=== PATIENT | female | born 1980 | race Caucasian/White ===

== ENCOUNTER 2016-04-28 11:56 | Inpatient (IN) | payer OTHER ==
[2016-04-28] MEDS ORDERED: AMPICILLIN SODIUM 2 GM in NS 100 ML IV ONE (14:30)
[2016-04-28] MEDS ORDERED: LR 1,000 ML IV ONE (14:30)
[2016-04-28] MEDS ORDERED: LIDOCAINE 1% 30 ML SDV SC PRN (14:53)
[2016-04-28] MEDS ORDERED: EPSOM SALT 454 GM TP PRN (14:53)
[2016-04-28] MEDS ORDERED: TERBUTALINE SULFATE 1 MG/ML VIAL IV PRN (14:53)
[2016-04-28] MEDS ORDERED: MINERAL OIL 60 ML OIL TP PRN (14:53)
[2016-04-28] MEDS ORDERED: OXYTOCIN/RINGERS LACTATE 1,000 ML IV PRN (14:53)
[2016-04-28 15:11] LABS: % IMMATURE GRANULYOCYTES 0.5 % (0.0-1.1); ABSOLUTE IMMATURE GRANULOCYTES 0.06 10^3/uL (0.00-0.10); ADD DIFF? NO; ADD MORPH? NO; ADD SCAN? NO; ATYPICAL LYMPHOCYTE FLAG 0 (0-99); FRAGMENT RBC FLAG 0 (0-99); HEMATOCRIT 41.8 % (38.0-47.0); HEMOGLOBIN 13.9 g/dL (12.6-16.3); LEFT SHIFT FLG 0 (0-99); LIPEMIA HEMOLYSIS FLAG 80 (0-99); MEAN CELL HEMOGLOBIN 27.7 pg (27.9-34.1); MEAN CELL HEMOGLOBIN CONCENTR. 33.3 g/dL (32.4-36.7); MEAN CELL VOLUME 83.3 fL (81.5-99.8); MEAN PLATELET VOLUME 11.2 fL (8.7-11.7); PLATELET CLUMPS FLAG 10 (0-99); PLATELET COUNT 199 10^3/uL (150-400); RED BLOOD CELL COUNT 5.02 10^6/uL (4.18-5.33); RED CELL DISTRIBUTION WIDTH 15.1 % (11.5-15.2)
[2016-04-28] MEDS ORDERED: LIDOCAINE 1% 30 ML SDV ONE (15:13)
[2016-04-28] MEDS ORDERED: TERBUTALINE SULFATE 1 MG/ML VIAL ONE (15:13)
[2016-04-28] MEDS ORDERED: AMMONIA AROMATIC 1 EACH AMP IH ONE (15:13)
[2016-04-28] MEDS ORDERED: OXYTOCIN 10 UNIT/ML VIAL ONE (15:13)
[2016-04-28] MEDS ORDERED: MISOPROSTOL 200 MCG TAB ONE (15:14)
[2016-04-28] MEDS: AMPICILLIN SODIUM 1 GM in NS 100 ML IV SCH ×2 (18:30→22:12)
[2016-04-28] MEDS ORDERED: BUPIVACAINE 0.25% 30 ML SDV ONE (19:22)
[2016-04-28] MEDS ORDERED: fentaNYL 2MCG/ML/BUP 0.1% RTU 100 ML BAG EP ONE (19:22)
[2016-04-28] MEDS ORDERED: PHENYLEPHRINE HCL 100 MCG/ML SYR ONE (19:22)
[2016-04-28] MEDS ORDERED: fentaNYL 100 MCG/2 ML INJ ONE (19:37)
--- NOTE | 2016-04-28 19:59 | OBPROG ---
OBG Progress Note Assessment/Plan: Assessment: cat 1 fhr pain well managed requesting an epidural last exam 4/100/-1 leaking clear fluid since 0915 04/28/2016 raf q2-4 minutes Plan:epidural for pain relief 04/28/16 19:57 Subjective: Feeling greater pain. Requesting pain relief from anesthsia. Would like an epidural. Objective: 04/28/16 14:30 Patient ABO/Rh O POSITIVE 04/28/16 14:30 - SVE Dilation (cm): 4 Effacement (%): 100 Station: -1 Current Contraction Pattern: Regular FHR (bpm): 135 FHR Pattern Variability: Moderate FHR Category: 1 Membranes: SROM Amniotic Fluid Color: Clear ICD10 Worksheet Patient Problems: Problems Problem Status Diagnosed Full-term PROM with onset of labor within 24 hours of rupture Acute - ICD10 Problem Qualifiers (1) Full-term PROM with onset of labor within 24 hours of rupture
--- NOTE | 2016-04-28 20:16 | OBPROG ---
OBG Progress Note Assessment/Plan: Assessment: cat 2 fhr arom forebag meconium pain well managed afterm epidural placement at patient request last exam 7100/-1 leaking clear fluid since 0904/28/2016 raf q2-4 minutes Plan:expectant management of labor 04/28/16 19:57 04/28/16 20:14 Subjective: Doing well after the epidural denies pain Objective: 04/28/16 14:30 Patient ABO/Rh O POSITIVE 04/28/16 14:30 - SVE Dilation (cm): 7 Effacement (%): 100 Station: -1 Current Contraction Pattern: Regular FHR (bpm): 125 FHR Pattern Variability: Moderate FHR Category: 2 Membranes: AROM Amniotic Fluid Color: Meconium Stained-Moderate ICD10 Worksheet Patient Problems: Problems Problem Status Diagnosed Full-term PROM with onset of labor within 24 hours of rupture Acute - ICD10 Problem Qualifiers (1) Full-term PROM with onset of labor within 24 hours of rupture
--- NOTE | 2016-04-28 20:22 | GHP ---
[f rep st] HISTORY AND PHYSICAL DATE OF ADMISSION: 04/28/2016 HISTORY OF PRESENT ILLNESS: The patient is a 35-year-old, 2, para 1, who comes in on 04/28/2012 after rupture of membranes at 0900 with clear fluid. Denies regular contractions at that time. Started raf more regularly at 1:30 on 04/28/2016. Started with painful contractions at about 6 p.m. on 02/2017. PAST MEDICAL HISTORY: Benign. SURGICAL HISTORY: [place] tooth extraction. GYNECOLOGICAL HISTORY: History of OCP use and IUD Paragard use, removed in 2014. Paps within normal limits. HPV negative. PREVIOUS HISTORY: In 03/2009, a female who was 6 pounds 13 ounces at 39 weeks, delivered after 30 hours, vaginal delivery. This , 2. Patient has received care through [facility] routinely. No significant difficulties. LABORATORY DATA: The patient is O positive. Antibody negative. RPR is nonreactive. Rubella is immune. Hepatitis is negative. HIV is negative. Pap test was within normal limits with HPV negative. Gonorrhea and chlamydia were negative. Quad screen was negative on 11/17/2015 at 28 weeks. The patient was anemic at 34.9 today on admission. The patient was not anemic with a hematocrit of 41. One-hour GTT was within normal limits at 85. PLAN OF CARE: 1. GBS positive. Antibiotics during labor. 2. Pain relief at patient's request. 3. Expectant management of labor. /[id number]/MODL MTDD
[2016-04-28] MEDS ORDERED: LR 500 ML IV SCH (20:30)
[2016-04-28] MEDS ORDERED: fentaNYL 2MCG/ML/BUP 0.1% RTU 100 ML EP SCH (20:30)
--- NOTE | 2016-04-28 21:41 | OBPROG ---
OBG Progress Note Assessment/Plan: Assessment: cat 2 fhr arom forebag meconium pain well managed last exam 10/100/+1 raf q2-4 minutes attempt to push x 2 no movement of head will labor down x 1 h and reexam Plan:expectant management of labor 04/28/16 19:57 04/28/16 20:14 04/28/16 21:39 Objective: 04/28/16 14:30 Patient ABO/Rh O POSITIVE 04/28/16 14:30 - SVE Dilation (cm): 10 Effacement (%): 100 Station: +1 Current Contraction Pattern: Regular FHR (bpm): 135 FHR Pattern Variability: Moderate FHR Category: 2 Amniotic Fluid Color: Meconium Stained-Moderate ICD10 Worksheet Patient Problems: Problems Problem Status Diagnosed Full-term PROM with onset of labor within 24 hours of rupture Acute - ICD10 Problem Qualifiers (1) Full-term PROM with onset of labor within 24 hours of rupture
[2016-04-28] MEDS: IBUPROFEN 600 MG TAB PO PRN (22:58)
--- NOTE | 2016-04-28 22:59 | OBPROC ---
- Labor and Delivery Onset of Contractions Date: 04/28/16 Onset of Contractions Time: 13:30 Onset of Contractions Type: Spontaneous Rupture of Membranes Date: 04/28/16 Rupture of Membranes Time: 09:15 Rupture of Membranes Type: Spontaneous Amniotic Fluid Color: Clear, Meconium Stained-Moderate Dilation Complete Time: 21:28 Delivery Type: Spontaneous Placenta Delivery Date: 04/28/16 Placenta Delivery Time: 22:36 Episiotomy/Laceration: 2nd Degree Repair: 3-0, Vicryl EBL: 300 Complications: None - Medications Labor Augmentation/Induction Meds Used: Pitocin Anesthesia: Epidural - [place] Info A Delivery Date: 04/28/16 Delivery Time: 22:32 Score (1 Min): 8 Score (5 Min): 9
[2016-04-28] MEDS ORDERED: HYDROCODONE/APAP 5/325 TAB PO PRN (23:00)
[2016-04-28] MEDS ORDERED: ACETAMINOPHEN 325 MG TAB PO PRN (23:00)
[2016-04-28] MEDS ORDERED: HYDROCORTISONE 0.5% CREAM TP PRN (23:00)
[2016-04-28] MEDS ORDERED: SIMETHICONE 80 MG TAB CHEW PO PRN (23:00)
[2016-04-29] MEDS: AMPICILLIN SODIUM 1 GM in NS 100 ML IV SCH (02:53)
[2016-04-29] MEDS: IBUPROFEN 600 MG TAB PO PRN ×3 (05:06→19:38)
--- NOTE | 2016-04-29 07:56 | SOAPPROG ---
SOAP Progress Note Assessment/Plan: Assessment: denies pain well perineum approximated minimal swelling voiding without difficulty FF@u scant rubra lochia Plan:pp day1 04/28/16 19:57 04/28/16 20:14 04/28/16 21:39 04/29/16 07:54 Subjective: doing well this am . denies difficulties Objective: Vital Signs Temp Pulse Resp BP Pulse Ox 36.2 C 62 16 110/66 95 04/29/16 01:15 04/29/16 01:15 04/29/16 01:15 04/29/16 01:15 04/29/16 01:15 Laboratory Results 04/28/16 14:30 04/28/16 04/29/16 04/30/16 05:59 05:59 05:59 Intake Total 2600 Output Total 300 Balance 2300 - Time Spent With Patient Time Spent With Patient: 15 minutes - Pending Discharge Pending Discharge Within 24 Hours: Yes Pending Discharge Date: 04/30/16 Pending Discharge Time: 11:00 Physical Exam - Physical Exam General Appearance: WD/WN, alert, no apparent distress Abdomen: other (FF@u) Pelvic Exam: vaginal bleeding (scant rubra lochia) Skin: normal color, warm/dry Extremities: normal range of motion, Cesar's sign (negative) Neuro/Psych: alert, normal mood/affect, oriented x 3 ICD10 Worksheet Patient Problems: Problems Problem Status Diagnosed Full-term PROM with onset of labor within 24 hours of rupture Acute - ICD10 Problem Qualifiers (1) Full-term PROM with onset of labor within 24 hours of rupture
[2016-04-29 08:35] VITALS: O2SAT 96
[2016-04-29] MEDS: DOCUSATE SODIUM 100 MG CAP PO PRN (09:05)
[2016-04-30 08:31] VITALS: RESP 16
[2016-04-30] MEDS: DOCUSATE SODIUM 100 MG CAP PO PRN (10:22)
--- NOTE | 2016-04-30 12:34 | SOAPPROG ---
SOAP Progress Note Assessment/Plan: Assessment: PPD 1 1/2 s/p Plan: Routine care 04/30/16 12:31 Subjective: Pt doing well. Bld has lessened. Mod cramps but not even regularly needing ibu. urinating fine. Baby is latching well. Tired. Objective: Vital Signs Temp Pulse Resp BP Pulse Ox 36.2 C 89 16 112/70 96 04/30/16 08:30 04/30/16 08:30 04/30/16 08:30 04/30/16 08:30 04/30/16 08:30 Laboratory Results 04/28/16 14:30 04/29/16 04/30/16 05/01/16 05:59 05:59 05:59 Intake Total 2600 Output Total 300 Balance 2300 Physical Exam - Physical Exam General Appearance: WD/WN Abdomen: non-tender, soft, other (FF at umb -1) Pelvic Exam: vaginal bleeding (normal lochia) Extremities: non-tender, pedal edema (minimal) Neuro/Psych: normal mood/affect ICD10 Worksheet Patient Problems: Problems Problem Status Onset Full-term PROM with onset of labor within 24 hours of rupture Acute
[2016-04-30 22:22] VITALS: BP 115/68; PULSE 87; TEMP 97
--- NOTE | 2016-05-01 07:40 | OBPROG ---
OBG Progress Note Assessment/Plan: Assessment: s/p PPD #2.5 - pt is stable Plan: Plan for d/c home today Instructions reviewed with pt No Rx given Cont PNV Pelvic rest RTC in 4 and 6 weeks 05/01/16 07:37 Subjective: Pt seen and examined. Doing well, no complaints. Minimal cramping, moderate lochia. without difficulty. Objective: 04/28/16 14:30 Patient ABO/Rh O POSITIVE 04/28/16 14:30 Temp Pulse Resp BP Pulse Ox 36.1 C 87 16 115/68 96 04/30/16 20:00 04/30/16 20:00 04/30/16 08:30 04/30/16 20:00 04/30/16 20:00 Uterine Position/Fundal Height: Umbilicus -2 Uterine Tone: Firm - Physical Exam General Appearance: WD/WN, alert, no apparent distress Respiratory: lungs clear, normal breath sounds Cardiac/Chest: regular rate, rhythm Abdomen: normal bowel sounds, non-tender, soft, flatus (+) Genitourinary: laceration (intact), lochia (moderate) Extremities: non-tender, normal inspection Neuro/Psych: alert, normal mood/affect, oriented x 3 ICD10 Worksheet Patient Problems: Problems Problem Status Onset (spontaneous vaginal delivery) Acute
[2016-05-01] MEDS: DOCUSATE SODIUM 100 MG CAP PO PRN (08:32)
== END 2016-05-01 11:00 | disposition home or self-care (01) | DRG 775 ==
LOC: FLD 11:56 → FOB 04-29 01:30
PROVIDERS: ADMIT Obstetrics & Gynecology; ATTEND Obstetrics & Gynecology
PROC: 10E0XZZ Delivery of Products of Conception, External Approach (ICD-10-PCS; principal; 2016-04-28)
PROC: 0KQM0ZZ Repair Perineum Muscle, Open Approach (ICD-10-PCS; principal; 2016-04-28)
PROC: 10907ZC Drainage of Amniotic Fluid, Therapeutic from Products of Conception, Via Natural or Artificial Opening (ICD-10-PCS; principal; 2016-04-28)
DX: O77.0 Labor and delivery complicated by meconium in amniotic fluid (principal); O70.1 Second degree perineal laceration during delivery; O99.820 Streptococcus B carrier state complicating pregnancy; Z3A.40 40 weeks gestation of pregnancy; Z37.0 Single live birth
CPT/HCPCS: J0290; J2370; J2590; J3010; J3105